=== PATIENT | male | born 1995 | race Caucasian/White ===

== ENCOUNTER 2016-05-18 19:15 | Emergency (ER) | payer BC ==
[2016-05-18] MEDS ORDERED: Azithromycin 250 MG TAB ONE (20:10)
--- NOTE | 2016-05-18 20:33 | ERRECORD ---
[facility] EMERGENCY RECORD PAST MEDICAL HISTORY (19:30 JPAR) MEDICAL HISTORY: No past medical history, Flu vaccine not up to date, Tetanus not up to date, Pneumococcal vaccine not up to date. MALE SURGICAL HISTORY: Patient has no surgical history. PSYCHIATRIC HISTORY: No previous psychiatric history. SOCIAL HISTORY: Patient denies alcohol use, Patient denies drug use, Patient currently uses tobacco, smokes cigarettes, Occasional or some day smoker. KNOWN ALLERGIES No Known Drug Allergies CURRENT MEDICATIONS (19:29 JPAR) None VITAL SIGNS (19:27 JPAR) VITAL SIGNS: BP: 130/73, Pulse: 101, Resp: 16, Temp: 99.1 (Oral), Pain: 0, O2 sat: 98 on Room Air, Time: 05/18/2016 19:27. MEDICATION ADMINISTRATION SUMMARY Drug Name: Zithromax oral, Dose Ordered: 500 mg, Route: Oral, Status: Given, Time: 20:11 05/18/2016, Detailed record available in Medication Service section. PROBLEM LIST No recorded problems DIAGNOSIS (20:06 MPUR) FINAL: PRIMARY: Aspiration bronchitis. PRESCRIPTION (20:06 MPUR) Zithromax Z-Bryon: CAPSULE (HARD, SOFT, ETC.) : 250 mg : ORAL : Quantity: 1 Unit: Route: ORAL Schedule: See Notes Dispense: 1 May substitute. Refills: No Refills . NOTES: 2 on Day 1 , then 1 daily. No Refills. DISPOSITION PATIENT: Disposition Type: Discharge, Disposition: *Discharge Home. (20:06 MPUR) Patient left the department. (20:20 MBOS) Allen: VERNON=SABRINA Crowder, Erik MBOS=SABRINA Azul Marie MPUR=MD Enrique, Kash &a-1R&a+25V*p+0X*b1459H*c152B*c15G*c2P*p-0X&a-25V&a+1RName: Reid Muhammad : M20 MedRec: [id number] AcctNum: [id number] Prepared: Latosha May 18, 2016 20:28 by Interface Page 1 of 1 pMD MTDD
--- NOTE | 2016-05-18 20:40 | PICIS ---
[facility] EMERGENCY RECORD TRIAGE (19:28 JPAR) TRIAGE NOTES: [place], reportedly has a fever. (19:28 JPAR) PATIENT: NAME: Reid Muhammad, AGE: 20, GENDER: male, : TueNov 04, 1995, TIME OF GREET: TueMay 18, 2016 19:17, PREFERRED LANGUAGE: Italian, ETHNICITY: Not or , ECODE BILLING MAP: [facility], SSN: [id number], Zip Code: [address], KG WEIGHT: 63.50, , , PERSON ID: [id number], PCP: out of town. (19:28 JPAR) PHONE: MOM. (19:33) COMPLAINT: CHEST PAIN,FEVER 24 HRS,[place] (19:28 JPAR) ADMISSION: URGENCY: 3 Urgent, ADMISSION SOURCE: Home, TRANSPORT: CAR, BED: ER -03. (19:28 JPAR) ASSESSMENT: Assessment: [place] yesterday into water over his head, did inhale some water. Patient's mother states that he has a fever. (19:30 JPAR) PAIN: No complaint of pain. (19:30 JPAR) IMMUNIZATIONS: Flu vaccine not up to date, Tetanus not up to date, Pneumococcal vaccine not up to date. (19:30 JPAR) SIRS SCORING: Heart Rate 55-109 (0), Temp range 96.8-101.1 (0), respiratory rate 12-24 (0). (19:30 JPAR) PROVIDERS: TRIAGE NURSE: Erik Crowder RN. (19:28 JPAR) VITAL SIGNS: BP 130/73, Pulse 101, Resp 16, Temp 99.1, (Oral), Pain 0, O2 Sat 98, on Room Air, Time 05/18/2016 19:27. (19:27 JPAR) KNOWN ALLERGIES No Known Drug Allergies CURRENT MEDICATIONS (19:29 JPAR) None VITAL SIGNS (19:27 JPAR) VITAL SIGNS: BP: 130/73, Pulse: 101, Resp: 16, Temp: 99.1 (Oral), Pain: 0, O2 sat: 98 on Room Air, Time: 05/18/2016 19:27. NURSING ASSESSMENT: RESPIRATORY /CHEST (20:01 MBOS) CONSTITUTIONAL: Patient arrives ambulatory, Gait steady, History obtained from patient, Patient appears comfortable, Patient cooperative, Patient alert, Oriented to person, place and time, Skin warm, Skin dry, Skin normal in color, Mucous membranes pink, Mucous membranes moist, Patient is well-groomed, Patient complains of fell in [place], cough, fever, Patient's mother told him that he had a fever but did not tell him how high the fever is. Patient's parents insisted he come to ER. PAIN: Patient rates pain as 0 out of 10, Patient denies any pain and specifically denies any chest pain. He states that when he coughs, his head hurts significantly. RESPIRATORY/CHEST: Breath sounds clear, Respiratory assessment findings include respiratory effort easy, Respirations regular, &a-1R&a+25V*p+0X*[id number]*c152B*c15G*c2P*p-0X&a-25V&a+1RName: Reid Muhammad : M22 MedRec: [id number] AcctNum: [id number] Prepared: janet May 18, 2016 23:16 by Interface Page 1 of 5 pMD [facility] EMERGENCY RECORD Conversing normally, Neck and chest exam findings include trachea midline, Chest expansion equal, Chest movement symmetrical, Associated with cough, Associated with fever, Maximum temperature unknown. SAFETY: Side rails up, Cart/Stretcher in lowest position, Call light within reach, Hospital ID band on. NURSING PROCEDURE: DISCHARGE NOTE (20:19 MBOS) DISCHARGE: Patient discharged to home, ambulating without assistance, family driving, accompanied by parent, Summary of Care printed/ provided, Discharge instructions given to patient, Simple or moderate discharge teaching performed, Prescriptions given and instructions on side effects given, Above person(s) verbalized understanding of discharge instructions and follow-up care, Patient treated and evaluated by physician. NURSING PROCEDURE: TRANSPORT TO TESTS (19:47 SBRA) PATIENT IDENTIFIER: Patient actively involved in identification process, Patient's identity verified by patient stating name, Patient's identity verified by patient stating date. TRANSPORT TO TESTS: Patient transported to x-ray, ambulatory, Accompanied by x-ray histologic technician, Patient arrived in location at 1940, Patient departed location at 1945. FOLLOW-UP: After procedure, patient returned to emergency department. ORDER DETAILS Order Name: XR Chest Pa & Lat STANDARD, Status: Active, Time: 19:35 05/18/2016, User: GARY, - Ordered for: MD Nunez Marcus, - Entered by: SABRINA Azul Marie - TueMay 18, 2016 19:35, - Quantity: 1. MEDICATION ADMINISTRATION SUMMARY Drug Name: Zithromax oral, Dose Ordered: 500 mg, Route: Oral, Status: Given, Time: 20:11 05/18/2016, Detailed record available in Medication Service section. MEDICATION SERVICE (20:11 MPUR) Zithromax oral: Order: Zithromax oral (azithromycin) - Dose: 500 mg : Oral Schedule: Now Ordered by: Kash Nunez MD Entered by: Kash Nunez MD TueMay 18, 2016 20:06 , Acknowledged by: Soraya Azul RN TueMay 18, 2016 20:09 Documented as given by: Soraya Azul RN TueMay 18, 2016 20:11 Patient, Medication, Dose, Route and Time verified prior to administration. Patient appears Awake and alert- acceptable, Correct patient, time, &a-1R&a+25V*p+0X*h0035O*c152B*c15G*c2P*p-0X&a-25V&a+1RName: Reid Muhammad : M20 MedRec: [id number] AcctNum: [id number] Prepared: TueMay 18, 2016 23:16 by Interface Page 2 of 5 pMD [facility] EMERGENCY RECORD route, dose and medication confirmed prior to administration, Patient advised of actions and side-effects prior to administration, Allergies confirmed and medications reviewed prior to administration, Patient in position of comfort, Side rails up, Cart in lowest position. HPI COUGH (22:59 MPUR) CHIEF COMPLAINT: Patient presents for evaluation of cough. HISTORIAN: History provided by patient, Pt was out and about yesterday and states he somehow fell into a flowing [place] above his head and inhaled some of the water. Since then he has been coughing a moist cough. Admits he smokes. States he has been having intermittent fever and chills since then as well. LOCATION: Symptoms are generalized. QUALITY: Symptoms described as tightness. TIME COURSE: Sudden onset of symptoms, Symptoms are worsening. ASSOCIATED WITH: Associated with chills, Associated with dyspnea on exertion, Associated with fever, Associated with nausea, No associated pleuritic symptoms, No associated stridor. EXACERBATED BY: Patient's condition exacerbated by smoking. RELIEVED BY: Patient's condition relieved by nothing. ROS (23:03 MPUR) CONSTITUTIONAL: Historian denies fever. EYES: Historian denies eye pain. ENT: admits rhinorrhea. CARDIOVASCULAR: Historian denies chest pain. RESPIRATORY: cough. GI: Historian denies diarrhea, Historian denies vomiting. GENITOURINARY MALE: Historian denies dysuria. MUSCULOSKELETAL: Historian denies arthralgias. SKIN: Historian denies rash. NEUROLOGIC: Historian denies seizures. ENDOCRINE: Historian denies skin changes. HEMO/LYMPHATIC: Historian denies easy bruising. PAST MEDICAL HISTORY (19:30 JPAR) MEDICAL HISTORY: No past medical history, Flu vaccine not up to date, Tetanus not up to date, Pneumococcal vaccine not up to date. MALE SURGICAL HISTORY: Patient has no surgical history. PSYCHIATRIC HISTORY: No previous psychiatric history. SOCIAL HISTORY: Patient denies alcohol use, Patient denies drug use, Patient currently uses tobacco, smokes cigarettes, Occasional or some day smoker. PHYSICAL EXAM CONSTITUTIONAL: Vital signs reviewed. (23:03 MPUR) &a-1R&a+25V*p+0X*f7034U*c152B*c15G*c2P*p-0X&a-25V&a+1RName: Reid Muhammad : M20 MedRec: [id number] AcctNum: [id number] Prepared: TueMay 18, 2016 23:16 by Interface Page 3 of 5 pMD [facility] EMERGENCY RECORD HEAD: Head exam included findings of head atraumatic. (23:03 MPUR) EYES: Eye exam included findings of eyelids normal to inspection, Sclera normal. (23:03 MPUR) ENT: Nose exam normal, no nasal deformity, mucous membranes moist. (23:03 MPUR) NECK: Trachea midline, no contusions. (23:03 MPUR) RESPIRATORY CHEST: Respiratory exam included findings of no respiratory distress, No wheezing, Rales present, Rhonchi present, Chest exam included findings of chest movement symmetrical, Percussion normal. (23:05 MPUR) CARDIOVASCULAR: Cardiovascular exam included findings of heart rate regular rate and rhythm, Heart sounds normal. (23:03 MPUR) ABDOMEN MALE: Abdominal exam included findings of abdomen nontender, no mass, no percussion. (23:03 MPUR) LOWER EXTREMITY: no cyanosis, no edema. (23:03 MPUR) NEURO: Speech normal, Memory normal, alert, moving all extremities well. (23:03 MPUR) SKIN: Skin exam included findings of skin warm, dry, no rash. (23:03 MPUR) PSYCHIATRIC: Normal affect, Recent memory normal. (23:03 MPUR) EVENTS TRANSFER: Triage to Emergency Emergency Room -03. (TueMay 18, 2016 19:28 JPAR) Removed from Emergency Emergency Room -03. (20:20 MBOS) DOCTOR NOTES TEXT: I have reviewed and agree with nurse's past medical, family, and social history as documented on chart. Pt's vital signs have been reviewed. (23:03 MPUR) Pt with aspiration and response from the exposure. Will cover with [employer]. (23:06 MPUR) PROBLEM LIST No recorded problems DIAGNOSIS (20:06 MPUR) FINAL: PRIMARY: Aspiration bronchitis. DISPOSITION PATIENT: Disposition Type: Discharge, Disposition: *Discharge Home. (20:06 MPUR) Patient left the department. (20:20 MBOS) INSTRUCTION (20:08 MPUR) DISCHARGE: BRONCHITIS, ABX [place] (ADULT). SPECIAL: Start Zpak tomorrow. Mucinex DM as needed for cough. Follow-up with your primary physician as needed. &a-1R&a+25V*p+0X*[id number]*c152B*c15G*c2P*p-0X&a-25V&a+1RName: Reid Muhammad : M20 MedRec: [id number] AcctNum: [id number] Prepared: TueMay 18, 2016 23:16 by Interface Page 4 of 5 pMD [facility] EMERGENCY RECORD PRESCRIPTION (20:06 MPUR) Zithromax Z-Bryon: CAPSULE (HARD, SOFT, ETC.) : 250 mg : ORAL : Quantity: 1 Unit: Route: ORAL Schedule: See Notes Dispense: 1 May substitute. Refills: No Refills . NOTES: 2 on Day 1 , then 1 daily. No Refills. IMAGING *DISCHARGE INSTRUCTIONS RECEIPT: Image captured from scanner. (20:19 MBOS) *SUPPLY CHARGE SHEET: Image captured from scanner. (20:20 MBOS) ADMIN (23:07 MPUR) DIGITAL SIGNATURE: MD Nunez Marcus. Allen: VERNON=SABRINA Crowder Jason MBOS=SABRINA Azul Marie MPUR=MD Nunez Marcus SBRA=KASSI Jones Stacey &a-1R&a+25V*p+0X*p4791K*c152B*c15G*c2P*p-0X&a-25V&a+1RName: Reid Muhammad : M22 MedRec: [id number] AcctNum: [id number] Prepared: Latosha May 18, 2016 23:16 by Interface Page 5 of 5 pMD MTDD
--- NOTE | 2016-05-18 20:51 | RAD ---
TWO VIEWS OF THE CHEST 05/18/16 COMPARISON: None. HISTORY: Fell in [place] yesterday with fever and cough. FINDINGS: Two views of the chest show normal sized cardiomediastinal silhouette. There is no evidence of conso lidation, mass, or pleural effusion. The bones are unremarkable. IMPRESSION: No evidence of acute cardiopulmonary disease. POS: [facility]
== END 2016-05-18 20:16 | disposition home or self-care (01) ==
LOC: NAV ERS 19:15
DX: J68.0 Bronchitis and pneumonitis due to chemicals, gases, fumes and vapors (principal); F17.210 Nicotine dependence, cigarettes, uncomplicated
CPT/HCPCS: 71020; 99283

== ENCOUNTER 2022-12-22 21:22 | Emergency (ER) | payer BC ==
[2022-12-22] MEDS ORDERED: LevoFLOXacin 750 mg/D5W 150 ml Premix Bag ONE (22:01)
[2022-12-22] MEDS ORDERED: Acetaminophen 500 MG TAB ONE (22:01)
[2022-12-22] MEDS ORDERED: Sodium Chloride 0.9% 1,000 ML ONE (22:01)
[2022-12-22] MEDS ORDERED: Morphine 4 MG/ML VIAL ONE (22:10)
[2022-12-22] MEDS ORDERED: Ondansetron PF 4 MG/2 ML Vial ONE (22:10)
[2022-12-22 22:15] LABS: Hemoglobin 14.5 g/dL (14.0-18.0); MDiff Complete? YES; Mean Corpuscular HGB CONC 32.9 g/dL (32.0-36.0); Mean Corpuscular Hemoglobin 29.4 pg (27.0-31.0); Mean Corpuscular Volume 89.3 fl (78.0-98.0); Mean Platelet Volume 6.1 fL (7.4-10.4); Platelet Count 378 10x3/uL (130-400); RBC Distribution Width 10.7 % (11.5-14.5); Red Blood Cell (RBC) Count 4.93 mill/uL (4.70-6.10); White Blood Cell (WBC) Count 36.4 10x3/uL (4.8-10.8)
[2022-12-22 22:16] LABS: ALT (SGPT) 17 U/L (8-55); AST (SGOT) 15 U/L (5-34); Albumin 3.9 g/dL (3.5-5.0); Alkaline Phosphatase 101 U/L (40-110); Anion Gap 16 mmol/L (10-20); BUN (Urea Nitrogen) 14 mg/dL (8.9-20.6); Bilirubin, Total 0.5 mg/dL (0.2-1.2); CK (CPK) 100 U/L (30-200); Calc. Creatinine Clearance 0 mL/min (70-130); Calcium 9.9 mg/dL (7.8-10.44); Carbon Dioxide 23 mmol/L (22-29); Chloride 100 mmol/L (98-107); Estimated GFR 96; Globulin 3.7 g/dL (2.4-3.5); Glucose 127 mg/dL (70-105); Lipase 2 U/L (8-78); Lymphocytes 2 % (21-51); Monocytes 6 % (0-10); Neutrophil 92 % (42-75); Protein, Total 7.6 g/dL (6.0-8.3); Sodium 135 mmol/L (136-145)
[2022-12-22 22:18] LABS: Bilirubin Negative (Negative); Blood, Urine Trace (Negative); Clarity Clear (Clear); Glucose, Urine (Dipstick) Negative (Negative); Ketone, Urine Negative (Negative); Leukocyte Trace (Negative); Nitrite Positive (Negative); Protein, Urine (Dipstick) 30 mg/dL (Neg-Trace); Urobilinogen 0.2 mg/dL (Less than 2)
[2022-12-22 22:19] LABS: Bacteria/HPF 2+ HPF (None Seen); CAUTI Indications for Culture Fever or rigors; RBC/HPF 0-3 HPF (0-3); Squamous Epithelial None Seen HPF (0-3)
[2022-12-22 22:20] LABS: Urine Culture Reflex Yes Yes
[2022-12-22 22:45] LABS: SARS-CoV-2 NAA Rapid Test Not Detected (NotDetected)
== END 2022-12-22 22:40 | disposition short-term general hospital (02) ==
LOC: NAV ERS 21:22
DX: A41.9 Sepsis, unspecified organism (principal); N50.811 Right testicular pain; F17.210 Nicotine dependence, cigarettes, uncomplicated
CPT/HCPCS: 80053; 81001; 82550; 83605; 83690; 85025; 87040; 87077; 87086; 87186; 87804; 96365; 96375; J1956; J2270; J2405; J7050; U0002